=== PATIENT | male | born 1980 | race Caucasian/White ===

== ENCOUNTER 2021-01-17 22:32 | Emergency (ER) | payer OTHER ==
[~2021-01-17] VITALS: Ht 193 cm; Wt 99.8 kg
[~2021-01-17 22:32] MED LIST: FLOMAX0.4 MG PO; Motrin,Rufen800 MG PO; NKHM; VICODIN 5/500 505 MG PO; ZOFRAN ODT4 MG SL
[2021-01-18] MEDS ORDERED: FLOMAX0.4 MG PO (00:44)
[2021-01-18] MEDS ORDERED: ZOFRAN4 MG PO (00:44)
== END 2021-01-18 01:27 | disposition home or self-care (01) ==
LOC: ED 22:32
DX: N13.2 Hydronephrosis with renal and ureteral calculous obstruction (principal); N13.4 Hydroureter; F17.200 Nicotine dependence, unspecified, uncomplicated; Z88.6 Allergy status to analgesic agent; Z79.899 Other long term (current) drug therapy

== ENCOUNTER 2021-04-27 15:38 | Emergency (ER) | payer OTHER ==
[~2021-04-27] VITALS: Ht 193 cm; Wt 99.8 kg
[~2021-04-27 15:38] MED LIST changes: +ZOFRAN4 MG PO
[2021-04-27 17:41] LABS: BASO # 0.1 10*3/uL (0.0-0.1); BASO % 0.4 % (0.0-1.0); EOS # 0.1 10*3/uL (0.0-0.4); EOS % 0.3 % (1.0-4.0); HEMATOCRIT 41.9 % (42.0-52.0); LYMPH # 2.3 10*3/uL (1.3-4.4); LYMPH % 14.2 % (27.0-41.0); MEAN CELL VOLUME 89.5 fl (80.0-94.0); MEAN CORPUSCULAR HGB CONC 34.6 g/dl (33.0-37.0); MEAN PLATELET VOLUME 9.9 fl (9.6-12.3); MONO # 0.9 10*3/uL (0.1-1.0); MONO % 5.5 % (3.0-9.0); NEUT # 12.6 10*3/uL (2.3-7.9); NEUT % 79.2 % (47.0-73.0); PLATELET COUNT AUTOMATED 307 10*3/uL (130-400); RED BLOOD COUNT 4.68 10*6/uL (4.50-5.90); RED CELL DISTRI WIDTH 12.9 % (0-14.5); WHITE BLOOD COUNT 15.9 10*3/uL (4.8-10.8)
[2021-04-27 17:59] LABS: ALBUMIN 3.8 gm/dl (3.1-4.5); ALKALINE PHOSPHATASE 79 U/L (45-117); BUN 14 mg/dl (7-24); CHLORIDE 110 mmol/L (98-107); CREATININE 1.33 mg/dL (0.70-1.30); LIPASE 44 U/L (73-393); POTASSIUM 3.8 mmol/L (3.5-5.1); SGOT/AST 15 IU/L (3-35); SGPT/ALT 22 U/L (12-78); SODIUM 141 mmol/L (136-145); TOTAL PROTEIN 7.3 gm/dL (6.4-8.2)
[2021-04-27 19:29] LABS: BILIRUBIN Negative (Negative); BLOOD Negative (Negative); CLARITY Clear (Clear); COLOR Yellow (Yellow); GLUCOSE Negative (Negative); KETONE Trace (Negative); LEUKO ESTERASE Negative (Negative); NITRITE Negative (Negative); UROBILINOGEN 0.2 E.U./dl (0.0-1.0)
[2021-04-27 19:51] LABS: MUCOUS 1+; WBC 21-30 wbc/hpf (0-5)
[2021-04-27] MEDS ORDERED: HYDROCODONE-AC1 EAC1 PO (20:11)
[2021-04-27] MEDS ORDERED: FLOMAX0.4 MG PO (20:11)
[2021-04-27] MEDS ORDERED: ZOFRAN4 MG PO (20:11)
[2021-04-27] MEDS ORDERED: SEPTDS PO (20:11)
== END 2021-04-27 21:25 | disposition home or self-care (01) ==
LOC: ED 15:38
PROVIDERS: Physician Assistant
DX: N13.30 Unspecified hydronephrosis (principal); N23 Unspecified renal colic; N39.0 Urinary tract infection, site not specified; Z79.899 Other long term (current) drug therapy

== ENCOUNTER 2024-02-16 12:02 | Emergency (ER) | payer OTHER ==
[~2024-02-16] VITALS: Ht 182.8 cm; Wt 99.8 kg
[~2024-02-16 12:02] MED LIST changes: +HYDROCODONE-AC1 EAC1 PO; +SEPTDS PO
[2024-02-16 12:45] LABS: BASO # 0.1 10*3/uL (0.0-0.1); BASO % 0.5 % (0.0-1.0); EOS # 0.2 10*3/uL (0.0-0.4); EOS % 1.4 % (1.0-4.0); HEMATOCRIT 46.8 % (42.0-52.0); LYMPH # 3.6 10*3/uL (1.3-4.4); LYMPH % 28.7 % (27.0-41.0); MEAN CELL VOLUME 92.1 fl (80.0-94.0); MEAN CORPUSCULAR HGB 30.3 pg (27.0-31.0); MEAN CORPUSCULAR HGB CONC 32.9 g/dl (33.0-37.0); MEAN PLATELET VOLUME 9.7 fl (9.6-12.3); MONO # 0.7 10*3/uL (0.1-1.0); MONO % 5.4 % (3.0-9.0); NEUT % 63.5 % (47.0-73.0); PLATELET COUNT AUTOMATED 310 10*3/uL (130-400); RED BLOOD COUNT 5.08 10*6/uL (4.50-5.90); RED CELL DISTRI WIDTH 13.3 % (0-14.5); WHITE BLOOD COUNT 12.6 10*3/uL (4.8-10.8)
[2024-02-16 13:07] LABS: ALKALINE PHOSPHATASE 77 U/L (46-116); BUN 14 mg/dl (9-23); CHLORIDE 108 mmol/L (98-107); SGPT/ALT 29 U/L (5-49); TOTAL PROTEIN 7.1 gm/dL (6.0-8.0)
[2024-02-16 13:08] LABS: POTASSIUM 4.2 mmol/L (3.4-5.1)
[2024-02-16] MEDS ORDERED: Ketorolac Tromethamine 30 MG/ML VIAL IV ONE (13:25)
[2024-02-16] MEDS ORDERED: HYDROCODONE-AC1 EAC1 PO (14:46)
[2024-02-16] MEDS ORDERED: FLOMAX0.4 MG PO (14:46)
== END 2024-02-16 14:53 | disposition home or self-care (01) ==
LOC: ED 12:02
PROVIDERS: Internal Medicine
DX: N20.0 Calculus of kidney (principal); Z87.891 Personal history of nicotine dependence

== ENCOUNTER → 2024-07-11 | Outpatient (CLI) | payer OTHER ==
[2024-07-11 10:06] LABS: BASO # 0.1 10*3/uL (0.0-0.1); BASO % 0.6 % (0.0-1.0); EOS # 0.1 10*3/uL (0.0-0.4); EOS % 1.7 % (1.0-4.0); HEMATOCRIT 45.6 % (42.0-52.0); LYMPH # 3.1 10*3/uL (1.3-4.4); LYMPH % 37.3 % (27.0-41.0); MEAN CELL VOLUME 90.8 fl (80.0-94.0); MEAN CORPUSCULAR HGB 31.9 pg (27.0-31.0); MEAN CORPUSCULAR HGB CONC 35.1 g/dl (33.0-37.0); MONO # 0.7 10*3/uL (0.1-1.0); MONO % 8.3 % (3.0-9.0); NEUT # 4.4 10*3/uL (2.3-7.9); NEUT % 51.9 % (47.0-73.0); PLATELET COUNT AUTOMATED 268 10*3/uL (130-400); RED BLOOD COUNT 5.02 10*6/uL (4.50-5.90); RED CELL DISTRI WIDTH 13.1 % (0-14.5); WHITE BLOOD COUNT 8.4 10*3/uL (4.8-10.8)
[2024-07-11 10:34] LABS: ALKALINE PHOSPHATASE 84 U/L (46-116); BUN 11 mg/dl (9-23); CHLORIDE 106 mmol/L (98-107); CHOLESTEROL 201 mg/dL (<200); LDL CHOLESTEROL 91 mg/dL (9-159); POTASSIUM 3.9 mmol/L (3.4-5.1); SGPT/ALT 42 U/L (5-49); TOTAL PROTEIN 6.6 gm/dL (6.0-8.0); TRIGLYCERIDES 373 mg/dl (<150)
== END | disposition home or self-care (01) ==
LOC: LAB 09:42
PROVIDERS: ATTEND Family Medicine
DX: Z13.6 Encounter for screening for cardiovascular disorders (principal); Z00.00 Encounter for general adult medical examination without abnormal findings; Z13.1 Encounter for screening for diabetes mellitus; A69.20 Lyme disease, unspecified

== ENCOUNTER → 2024-08-10 | Outpatient (CLI) | payer OTHER ==
[~2024-08-10] MED LIST changes: +LIPITOR40 MG PO
== END | disposition home or self-care (01) ==
LOC: CARD 07-28 09:30
PROVIDERS: ATTEND Internal Medicine Cardiovascular Disease
DX: I25.10 Atherosclerotic heart disease of native coronary artery without angina pectoris (principal); R07.9 Chest pain, unspecified

== ENCOUNTER 2024-08-30 19:40 | Emergency (ER) | payer OTHER ==
[~2024-08-30] VITALS: Ht 193 cm; Wt 90.7 kg
[2024-08-30] MEDS ORDERED: FLOMAX0.4 MG PO (20:14)
[2024-08-30] MEDS ORDERED: Tamsulosin Hydrochloride 0.4 MG CAP PO ONE (20:15)
[2024-08-30] MEDS ORDERED: Ondansetron Hydrochloride 4 MG/2 ML VIAL IV ONE (20:15)
[2024-08-30] MEDS ORDERED: MORPHINE Sulfate 2 MG/ML SYR IV ONE (20:15)
[2024-08-30] MEDS ORDERED: Ketorolac Tromethamine 15 MG/ML VIAL IV ONE (20:15)
[2024-08-30] MEDS ORDERED: SODIUM CHLORIDE 0.9% 1,000 ML IV ONE (20:15)
[2024-08-30 20:31] LABS: BASO # 0.1 10*3/uL (0.0-0.1); BASO % 0.5 % (0.0-1.0); EOS # 0.2 10*3/uL (0.0-0.4); HEMATOCRIT 44.3 % (42.0-52.0); LYMPH % 28.7 % (27.0-41.0); MEAN CELL VOLUME 92.7 fl (80.0-94.0); MEAN CORPUSCULAR HGB 31.6 pg (27.0-31.0); MEAN CORPUSCULAR HGB CONC 34.1 g/dl (33.0-37.0); MEAN PLATELET VOLUME 9.9 fl (9.6-12.3); MONO # 1.2 10*3/uL (0.1-1.0); MONO % 7.1 % (3.0-9.0); NEUT # 10.7 10*3/uL (2.3-7.9); NEUT % 62.4 % (47.0-73.0); PLATELET COUNT AUTOMATED 315 10*3/uL (130-400); RED BLOOD COUNT 4.78 10*6/uL (4.50-5.90); RED CELL DISTRI WIDTH 12.7 % (0-14.5); WHITE BLOOD COUNT 17.2 10*3/uL (4.8-10.8)
[2024-08-30 20:51] LABS: BUN 12 mg/dl (9-23); CHLORIDE 107 mmol/L (98-107); POTASSIUM 3.4 mmol/L (3.4-5.1)
[2024-08-30 20:56] LABS: BILIRUBIN Negative (Negative); BLOOD 1+ (Negative); CLARITY Clear (Clear); COLOR Yellow (Yellow); GLUCOSE Negative (Negative); KETONE Negative (Negative); LEUKO ESTERASE Negative (Negative); NITRITE Negative (Negative)
[2024-08-30] MEDS ORDERED: Acetaminophen/Hydrocodone 5 MG/325 MG TABLET PO ONE (21:55)
[2024-08-30] MEDS ORDERED: Ondansetron 4 MG 2 TAB ED PACK PO SCH (21:55)
== END 2024-08-30 22:20 | disposition home or self-care (01) ==
LOC: ED 19:40
PROVIDERS: Nurse Practitioner Family
DX: N20.0 Calculus of kidney (principal); R11.2 Nausea with vomiting, unspecified

== ENCOUNTER → 2024-10-13 | Outpatient (CLI) | payer OTHER | END | disposition home or self-care (01) | LOC: CT 07:52 | PROVIDERS: ATTEND Urology | DX: N20.0 Calculus of kidney (principal) ==

== ENCOUNTER 2025-03-23 10:35 | Emergency (ER) | payer OTHER ==
[~2025-03-23] VITALS: Ht 193 cm; Wt 101.2 kg
[2025-03-23] MEDS ORDERED: SODIUM CHLORIDE 0.9% 1,000 ML IV ONE (11:25)
[2025-03-23] MEDS ORDERED: Ondansetron Hydrochloride 4 MG/2 ML VIAL IV ONE (11:25)
[2025-03-23] MEDS ORDERED: MORPHINE Sulfate 2 MG/ML SYR IV ONE (11:25)
[2025-03-23 11:46] LABS: BILIRUBIN Negative (Negative); BLOOD 2+ (Negative); CLARITY Clear (Clear); COLOR Yellow (Yellow); GLUCOSE Negative (Negative); KETONE Negative (Negative); LEUKO ESTERASE Trace (Negative); NITRITE Negative (Negative); PH 5.5 (4.5-8.0); SPECIFIC GRAVITY 1.015 (1.001-1.030); UROBILINOGEN 0.2 E.U./dl (0.0-1.0)
[2025-03-23 11:52] LABS: BASO # 0.1 10*3/uL (0.0-0.1); BASO % 0.7 % (0.0-1.0); EOS # 0.1 10*3/uL (0.0-0.4); EOS % 1.6 % (1.0-4.0); HEMATOCRIT 45.8 % (42.0-52.0); MEAN CORPUSCULAR HGB CONC 34.5 g/dl (33.0-37.0); MONO # 0.7 10*3/uL (0.1-1.0); MONO % 7.5 % (3.0-9.0); NEUT # 5.1 10*3/uL (2.3-7.9); NEUT % 56.5 % (47.0-73.0); PLATELET COUNT AUTOMATED 280 10*3/uL (130-400); RED BLOOD COUNT 5.09 10*6/uL (4.50-5.90); RED CELL DISTRI WIDTH 13.2 % (0-14.5)
[2025-03-23 12:03] LABS: BACTERIA 1+; EPITHELIAL CELLS 0-2; MUCOUS 1+; RBC 21-30 rbc/hpf (0-2)
[2025-03-23 12:14] LABS: ALKALINE PHOSPHATASE 80 U/L (46-116); BUN 12 mg/dl (9-23); CHLORIDE 107 mmol/L (98-107); LIPASE 24 U/L (12-53); POTASSIUM 4.3 mmol/L (3.4-5.1); SGPT/ALT 26 U/L (5-49); TOTAL PROTEIN 7.1 gm/dL (6.0-8.0)
[2025-03-23] MEDS ORDERED: Ketorolac Tromethamine 30 MG/ML VIAL IV ONE (12:20)
[2025-03-23] MEDS ORDERED: Ondansetron4 MG PO (12:47)
[2025-03-23] MEDS ORDERED: FLOMAX0.4 MG PO (12:47)
[2025-03-23] MEDS ORDERED: HYDROCODONE-AC1 EAC1 PO (12:47)
== END 2025-03-23 12:46 | disposition home or self-care (01) ==
LOC: ED 10:35
PROVIDERS: Physician Assistant Medical
DX: N20.1 Calculus of ureter (principal); Z79.899 Other long term (current) drug therapy

== ENCOUNTER → 2025-06-28 | Outpatient (CLI) | payer OTHER ==
[~2025-06-28] MED LIST changes: +Ondansetron4 MG PO
== END ==
LOC: US 09:53
PROVIDERS: ATTEND Family Medicine
DX: N20.0 Calculus of kidney (principal)